=== PATIENT | female | born 1970 | race Caucasian/White ===

== ENCOUNTER 2018-08-28 09:30 | Outpatient (CLI) | payer OTHER | END 2018-08-28 23:59 | disposition home or self-care (01) | LOC: WOU 09:30 | PROVIDERS: ATTEND Surgery | DX: T81.49XA Infection following a procedure, other surgical site, initial encounter (principal); N61.0 Mastitis without abscess; N64.89 Other specified disorders of breast; T81.31XD Disruption of external operation (surgical) wound, not elsewhere classified, subsequent encounter; F17.200 Nicotine dependence, unspecified, uncomplicated; L03.313 Cellulitis of chest wall; L03.319 Cellulitis of trunk, unspecified | CPT/HCPCS: 11043; 11046; A6402 ==

== ENCOUNTER 2018-09-04 13:40 | Outpatient (CLI) | payer OTHER | END 2018-09-04 23:59 | disposition home health service (06) | LOC: WOU 13:40 | PROVIDERS: ATTEND Surgery | DX: T81.31XA Disruption of external operation (surgical) wound, not elsewhere classified, initial encounter (principal); T86.821 Skin graft (allograft) (autograft) failure; L03.313 Cellulitis of chest wall; N64.89 Other specified disorders of breast; N61.0 Mastitis without abscess; F41.9 Anxiety disorder, unspecified | CPT/HCPCS: 11043; A6402 ==

== ENCOUNTER 2018-09-15 13:00 | Outpatient (CLI) | payer OTHER | END 2018-09-15 23:59 | disposition home health service (06) | LOC: WOU 13:00 | PROVIDERS: ATTEND Surgery | DX: T81.31XA Disruption of external operation (surgical) wound, not elsewhere classified, initial encounter (principal); L03.313 Cellulitis of chest wall; L03.319 Cellulitis of trunk, unspecified; N64.89 Other specified disorders of breast; T86.821 Skin graft (allograft) (autograft) failure; F41.9 Anxiety disorder, unspecified | CPT/HCPCS: 11043 ==

== ENCOUNTER 2018-09-25 12:55 | Outpatient (CLI) | payer OTHER | END 2018-09-25 23:59 | disposition home health service (06) | LOC: WOU 12:55 | PROVIDERS: ATTEND Surgery | DX: T81.49XA Infection following a procedure, other surgical site, initial encounter (principal); L03.313 Cellulitis of chest wall; L03.319 Cellulitis of trunk, unspecified; N61.0 Mastitis without abscess; T81.31XD Disruption of external operation (surgical) wound, not elsewhere classified, subsequent encounter; T86.821 Skin graft (allograft) (autograft) failure; F41.9 Anxiety disorder, unspecified | CPT/HCPCS: 11043; A6402; A6407 ==

== ENCOUNTER 2018-09-29 13:10 | Outpatient (CLI) | payer OTHER | END 2018-09-29 23:59 | disposition home health service (06) | LOC: WOU 13:10 | PROVIDERS: ATTEND Surgery | DX: T81.31XA Disruption of external operation (surgical) wound, not elsewhere classified, initial encounter (principal); L03.313 Cellulitis of chest wall; N64.89 Other specified disorders of breast; T86.821 Skin graft (allograft) (autograft) failure; F41.9 Anxiety disorder, unspecified | CPT/HCPCS: 11043; A6402; A6407 ==

== ENCOUNTER 2018-10-06 13:10 | Outpatient (CLI) | payer OTHER | END 2018-10-06 23:59 | disposition home health service (06) | LOC: WOU 13:10 | PROVIDERS: ATTEND Surgery | DX: T81.31XA Disruption of external operation (surgical) wound, not elsewhere classified, initial encounter (principal); T81.49XA Infection following a procedure, other surgical site, initial encounter; L03.313 Cellulitis of chest wall; L03.319 Cellulitis of trunk, unspecified; N64.89 Other specified disorders of breast; T86.821 Skin graft (allograft) (autograft) failure; F41.9 Anxiety disorder, unspecified | CPT/HCPCS: 11042; A6402; A6407 ==

== ENCOUNTER 2018-10-09 13:30 | Outpatient (CLI) | payer OTHER | END 2018-10-09 23:59 | disposition home health service (06) | LOC: WOU 13:30 | PROVIDERS: ATTEND Surgery | DX: T81.49XA Infection following a procedure, other surgical site, initial encounter (principal); N61.0 Mastitis without abscess; L03.313 Cellulitis of chest wall; L03.319 Cellulitis of trunk, unspecified; T81.31XD Disruption of external operation (surgical) wound, not elsewhere classified, subsequent encounter; T86.821 Skin graft (allograft) (autograft) failure; F41.9 Anxiety disorder, unspecified; F17.200 Nicotine dependence, unspecified, uncomplicated | CPT/HCPCS: 11042; A6402; A6407 ==

== ENCOUNTER 2018-10-16 13:10 | Outpatient (CLI) | payer OTHER | END 2018-10-16 23:59 | disposition home health service (06) | LOC: WOU 13:10 | PROVIDERS: ATTEND Surgery | DX: T81.49XA Infection following a procedure, other surgical site, initial encounter (principal); N61.0 Mastitis without abscess; L03.313 Cellulitis of chest wall; L03.319 Cellulitis of trunk, unspecified; T81.31XD Disruption of external operation (surgical) wound, not elsewhere classified, subsequent encounter; T86.821 Skin graft (allograft) (autograft) failure; F41.9 Anxiety disorder, unspecified; F17.200 Nicotine dependence, unspecified, uncomplicated | CPT/HCPCS: 11042; A6402 ==

== ENCOUNTER 2018-10-23 10:35 | Outpatient (CLI) | payer OTHER | END 2018-10-23 23:59 | disposition home or self-care (01) | LOC: WOU 10:35 | PROVIDERS: ATTEND Surgery | DX: T81.31XD Disruption of external operation (surgical) wound, not elsewhere classified, subsequent encounter (principal); T81.49XD Infection following a procedure, other surgical site, subsequent encounter; N65.0 Deformity of reconstructed breast; F41.9 Anxiety disorder, unspecified; F17.200 Nicotine dependence, unspecified, uncomplicated; L03.313 Cellulitis of chest wall; L03.319 Cellulitis of trunk, unspecified | CPT/HCPCS: G0463 ==